=== PATIENT | female | born 1955 | race Caucasian/White ===

== ENCOUNTER → 2017-06-13 | Outpatient (CLI) | payer BC ==
[~2017-06-13] MED LIST: ASPI1TAB55; BUTA1CAP39 PO; ESTR1TAB14 PO; ESTR2TAB PO; INDO25CA PO; INDO50CA PO; LEVO88TA54 PO; LORA1TAB PO; MONT10TA21 PO; OXYB5TAB9 PO; PROP10TA8; PROP60CA PO; SMTR6KT.5; SULF1TAB38 PO; SUMA100T2 PO
== END ==
LOC: RAD 09:20
PROVIDERS: ATTEND Internal Medicine
DX: Z12.31 Encounter for screening mammogram for malignant neoplasm of breast (principal)
CPT/HCPCS: 77067

== ENCOUNTER → 2017-06-28 | Outpatient (CLI) | payer BC ==
--- NOTE | 2017-06-28 19:28 | Diagnostic Imaging Report ---
Left breast diagnostic mammogram with tomography. The current study was also evaluated with a Computer Aided Detection (CAD) system. INDICATION: Lateral left breast asymmetry. COMPARISON: 06/13/2017. FINDINGS: The breast parenchyma is heterogeneously dense which may decrease mammographic sensitivity. No mass is definitely confirmed at the site of asymmetry on focal compression view or the lateral projection. Dense background parenchyma could be responsible for summation artifact. IMPRESSION: The previously seen asymmetry could be related to summation effect of parenchyma. Ultrasound evaluation pending. ACR BI-RADS Category 0: Incomplete. (Needs additional imaging evaluation). Result letter will be mailed to the patient. Note: At least 10% of breast cancer is not imaged by mammography. Dictated on workstation # [id number]
--- NOTE | 2017-06-28 19:44 | Diagnostic Imaging Report ---
Left breast ultrasound. INDICATION: Asymmetry seen along the outer aspect of the left breast. FINDINGS: Four quadrants and retroareolar region of the left breast are scanned with no significant abnormality seen. A simple cyst measuring 1.4 x 0.5 x 1.2 cm at 4 o'clock, 8 cm from the nipple is incidentally noted. It is uncertain if this explains the asymmetry seen on mammography which could also be summation artifact of parenchyma. IMPRESSION: 1.4 cm simple cyst at 4 o'clock, 8 cm from the nipple is seen. It is uncertain if this matches the mammographic asymmetry. Six-month follow-up mammogram is recommended to ensure no adverse development. ACR BI-RADS Category 3: Probably benign findings. Dictated on workstation # [id number]
== END ==
LOC: RAD 07:54
PROVIDERS: ATTEND Internal Medicine
DX: N63 Unspecified lump in breast (principal)
CPT/HCPCS: 76641

== ENCOUNTER → 2017-12-23 | Outpatient (CLI) | payer BC ==
--- NOTE | 2017-12-23 18:17 | Diagnostic Imaging Report ---
EXAMINATION: Unilateral diagnostic left mammogram. The current study was also evaluated with a Computer Aided Detection (CAD) system. This study was compared to the prior exams of 06/28/2017, 06/13/2017, 11/15/2015, and 06/24/2014. At this time, there are no current complaints. FINDINGS: The previous mammogram and ultrasound exam performed on 06/28/2017 noted a 1.4 cm simple cyst in the 4 o'clock position of the breast roughly 8 cm from the nipple. It does not seem to have changed significantly since the prior exam. Ultrasound of the left breast is pending for further evaluation. The fibroglandular tissue in the left breast is dense. This does limit the sensitivity of this exam. When compared with the previous study, there has been no significant change. There is no primary or secondary sign of malignancy noted. IMPRESSION: 1. The cyst in the left breast seen previously does not seem to have changed significantly. Ultrasound is pending for further evaluation, however. 2. The overall appearance of the left breast is otherwise stable. There is no evidence for malignancy. ACR BI-RADS Category 0: Incomplete. (Needs additional imaging evaluation). Result letter will be mailed to the patient. Note: At least 10% of breast cancer is not imaged by mammography. Dictated by: Dictated on workstation # [id number]
--- NOTE | 2017-12-24 20:34 | Diagnostic Imaging Report ---
Ultrasound of the left breast. INDICATION: Abnormal mammogram. FINDINGS: The diagnostic mammogram and ultrasound exam performed on 06/28/2017 noted a 1.4 CM simple cyst in the 4 o'clock position of the left breast. The diagnostic mammogram performed earlier today failed to show any sign of malignancy. On this exam, the cyst in question is again identified. The cyst now measures 1.3 x 0.5 x 1.0 cm. This cyst has a generally benign appearance. IMPRESSION: The cyst seen on the previous study is again evident and measure slightly smaller. Most likely this finding is a benign process. It may prove worthwhile to have this area reexamined by ultrasound when the patient has her followup screening mammogram of both breasts in June of this year. ACR BI-RADS Category 3: Probably benign findings. Dictated by: Dictated on workstation # [id number]
== END ==
LOC: RAD 09:09
PROVIDERS: ATTEND Internal Medicine
DX: N60.02 Solitary cyst of left breast (principal)
CPT/HCPCS: 76642

== ENCOUNTER → 2018-12-08 | Outpatient (CLI) | payer BC ==
[~2018-12-08] MED LIST changes: -INDO50CA PO; +INDO50CA11 PO
--- NOTE | 2018-12-08 20:10 | Diagnostic Imaging Report ---
INDICATION: Screening. Comparison made with prior examination from 12/23/2017 back through 06/24/2014. The current study was also evaluated with a Computer Aided Detection (CAD) system. 3-D tomosynthesis was performed and reviewed. FINDINGS: The fibroglandular tissue is heterogeneously dense bilaterally. There are few benign-type calcifications. There is no dominant mass, spiculated lesion, or suspicious calcification identified. Skin, nipples, and axillae are unremarkable. IMPRESSION: Benign. ACR BI-RADS Category 2: Benign findings. Result letter will be mailed to the patient. Note: At least 10% of breast cancer is not imaged by mammography. Dictated by: Dictated on workstation # [id number]
== END ==
LOC: RAD 08:57
PROVIDERS: ATTEND Internal Medicine
DX: Z12.31 Encounter for screening mammogram for malignant neoplasm of breast (principal)
CPT/HCPCS: 77067

== ENCOUNTER → 2020-11-23 | Outpatient (CLI) | payer BC, MEDICARE ==
[~2020-11-23] MED LIST changes: -INDO50CA11 PO; +INDO50CA82 PO
--- NOTE | 2020-11-23 11:48 | Diagnostic Imaging Report ---
INDICATION: Routine screening. Comparison is made with prior mammogram from 12/08/2018 and 06/13/2017. 2-D and 3-D bilateral screening mammography was performed with CAD. Both breasts are heterogeneously dense, limiting sensitivity of mammography. Intraparenchymal lymph node in the region of the right axillary tail is stable. No spiculated mass or malignant appearing microcalcifications are seen. There is intraparenchymal lymph node in the upper outer left breast as well. Axillae are unremarkable. IMPRESSION: BI-RADS Category 2 No mammographic features suspicious for malignancy are identified. ACR BI-RADS Category 2: Benign findings. Result letter will be mailed to the patient. Note: At least 10% of breast cancer is not imaged by mammography. Dictated by: Dictated on workstation # [id number]
== END ==
LOC: RAD 10:00
PROVIDERS: ATTEND Internal Medicine
DX: Z12.31 Encounter for screening mammogram for malignant neoplasm of breast (principal)
CPT/HCPCS: 77063; 77067

== ENCOUNTER → 2021-04-26 | Outpatient (CLI) | payer MEDICARE | LOC: CARD 11:27 | PROVIDERS: ATTEND Internal Medicine | DX: I42.2 Other hypertrophic cardiomyopathy (principal) | CPT/HCPCS: 93005 ==

== ENCOUNTER → 2021-11-02 | Outpatient (CLI) | payer MEDICARE ==
[~2021-11-02] MED LIST changes: -ESTR2TAB PO; +ESTR2TAB3 PO
== END ==
LOC: LABNPT 07:50
PROVIDERS: ATTEND Internal Medicine
DX: U07.1 COVID-19 (principal)
CPT/HCPCS: 87635

== ENCOUNTER → 2022-01-17 | Outpatient (CLI) | payer MEDICARE ==
--- NOTE | 2022-01-17 12:21 | Diagnostic Imaging Report ---
INDICATION: Routine screening. Comparison is made with prior mammogram 11/23/2020 and 12/08/2018. 2-D and 3-D bilateral screening mammography was performed with CAD. Both breasts are heterogeneously dense, limiting the sensitivity of mammography. Intraparenchymal lymph nodes in the upper outer right breast appears stable. There is been development of an ovoid circumscribed density in the lower outer left breast at mid depth 5 to 6 cm from the nipple. Further evaluation with ultrasound is recommended. No other masses are seen. No malignant-appearing microcalcifications are identified. Axillae are unremarkable. IMPRESSION: Ovoid circumscribed density in the lower outer left breast 5-6 cm from the nipple. Further evaluation of this area with ultrasound is recommended. ACR BI-RADS Category 0: Incomplete. (Needs additional imaging evaluation). Result letter will be mailed to the patient. Note: At least 10% of breast cancer is not imaged by mammography. BI-RADS Category 0 Dictated by: Dictated on workstation # [id number]
== END ==
LOC: RAD 10:15
PROVIDERS: ATTEND Internal Medicine
DX: Z12.31 Encounter for screening mammogram for malignant neoplasm of breast (principal)
CPT/HCPCS: 77063; 77067

== ENCOUNTER → 2022-01-29 | Outpatient (CLI) | payer MEDICARE ==
--- NOTE | 2022-01-29 11:08 | Diagnostic Imaging Report ---
INDICATION: Abnormal mammogram demonstrating a circumscribed density in the lower outer left breast. This study is performed for further evaluation. COMPARISON: Screening mammogram from 01/17/2022. FINDINGS: Sonographic interrogation of the lower outer left breast was performed. There is an ovoid simple cyst at the 4 o'clock location 6 cm from the nipple measuring 18 mm x 6 mm x 15 mm. This likely accounts for the mammographic density. No solid mass is detected. IMPRESSION: Simple cyst at the 4 o'clock location of the left breast accounting for the mammographic density. The patient may return to routine annual screening mammography. ACR BI-RADS Category 2: Benign findings. Dictated by: Dictated on workstation # [id number]
== END ==
LOC: RAD 09:15
PROVIDERS: ATTEND Internal Medicine
DX: N60.02 Solitary cyst of left breast (principal)
CPT/HCPCS: 76641

== ENCOUNTER → 2023-04-01 | Outpatient (CLI) | payer MEDICARE ==
[~2023-04-01] MED LIST changes: +MONT-47 PO; -MONT10TA21 PO
== END ==
LOC: LAB 15:08
PROVIDERS: ATTEND Internal Medicine
DX: R06.02 Shortness of breath (principal); R05.9 Cough, unspecified
CPT/HCPCS: 36415; 85379